=== PATIENT | female | born 2005 | race Asian ===

== ENCOUNTER 2024-01-08 11:05 | Outpatient (CLI) | payer BC, SELFPAY ==
[2024-01-08 17:28] LABS: Chlamydia DNA Amplified* Not Detected (No Detected); GC DNA Amplified* Not Detected (No Detected)
== END 2024-01-08 11:06 | disposition home or self-care (01) ==
PROVIDERS: Visit Provider Nurse Practitioner Family
DX: N89.8 Other specified noninflammatory disorders of vagina (principal)
CPT/HCPCS: 86592; 86703; 87086; 87186; 87491; 87591